=== PATIENT | female | born 1980 | race Caucasian/White ===

== ENCOUNTER 2017-03-28 22:43 | Emergency (ER) | payer OTHER ==
[~2017-03-28] VITALS: Ht 165.1 cm; Wt 90.0 kg
[~2017-03-28 22:43] MED LIST: CHOLESTEROL MED; ERYTHROMYCIN3.5 GM OD; IBUPROFEN600 MG PO; LISINOPRIL2.5 MG PO; LORTAB 5-325 M1 EACH PO; NORCO 5-325 TA1 EACH PO; VITAMIN D5000 UNIT
== END 2017-03-29 01:47 | disposition home or self-care (01) ==
LOC: ED 22:43
DX: R10.12 Left upper quadrant pain (principal); R10.13 Epigastric pain; I10 Essential (primary) hypertension; Z79.899 Other long term (current) drug therapy
CPT/HCPCS: 74177; 80053; 81001; 83690; 84703; 85025; 96374; 96375; 99284; J1885; J2270; J2405; J7030; Q9967

== ENCOUNTER 2017-06-15 19:50 | Emergency (ER) | payer OTHER ==
[~2017-06-15] VITALS: Ht 165.1 cm; Wt 90.0 kg
--- OUTSIDE RECORDS SUMMARY | ~2017-06-15 | XMS | Clinical Summary ---
Demographics + + + | Address | [address] | | | [place] [address] | + + + | Home Phone | | + + + | Preferred Language | Unknown | + + + | Marital Status | Single | + + + | Orthodoxy Affiliation | Unknown | + + + | Race | Unknown | + + + | Ethnic Group | Unknown | + + + Author + + + | Author | [facility] | + + + | Organization | [facility] | + + + | Address | Unknown | + + + | Phone | Unavailable | + + + Support + + +---------+ + | Name | Relationship | Address | Phone | + + +---------+ + | Fabian Aranda | ECON | Unknown | | + + +---------+ + Care Team Providers + +------+ + | Care Energy And Conservation Technician Name | Role | Phone | + +------+ + PP | Unavailable | + +------+ + Allergies No Known Allergies Current Medications No known medications Active Problems No known active problems Social History + +-------+ +--------+------+ | Tobacco Use | Types | Packs/Day | Years | Date | | | | | Used | | + +-------+ +--------+------+ | Never Smoker | | | | | + +-------+ +--------+------+ + + + | Sex Assigned at | Date Recorded | | | | + + + | Not on file | | + + + Last Filed Vital Signs + + + + | Vital Sign | Reading | Time Taken | + + + + | Blood Pressure | 134/92 | 01/05/2013 7:07 AM PST | + + + + | Pulse | 91 | 01/05/2013 7:07 AM PST | + + + + | Temperature | 36.9 C (98.5 F) | 01/05/2013 7:07 AM PST | + + + + | Respiratory Rate | 18 | 01/05/2013 7:07 AM PST | + + + + | Oxygen Saturation | 97% | 01/05/2013 7:07 AM PST | + + + + | Inhaled Oxygen | - | - | | Concentration | | | + + + + | Weight | 93 kg (205 lb) | 01/05/2013 1:55 AM PST | + + + + | Height | 165.1 cm (5' 5") | 01/05/2013 1:55 AM PST | + + + + | Body Mass Index | 34.11 | 01/05/2013 1:55 AM PST | + + + + Plan of Treatment Not on file Results Not on filefrom Last 3 Months
--- OUTSIDE RECORDS SUMMARY | ~2017-06-15 | XMS | Clinical Summary ---
Demographics + + + | Address | [address] | | | [place] [address] | + + + | Home Phone | | + + + | Preferred Language | Unknown | + + + | Marital Status | Single | + + + | Zoroastrianism Affiliation | Unknown | + + + | Race | Unknown | + + + | Ethnic Group | Unknown | + + + Author + + + | Author | [facility] | + + + | Organization | [facility] | + + + | Address | Unknown | + + + | Phone | Unavailable | + + + Support + + +---------+ + | Name | Relationship | Address | Phone | + + +---------+ + | Fabian Aranda | ECON | Unknown | | + + +---------+ + Care Team Providers + +------+ + | Care Outside Barrel Lathe Operator Name | Role | Phone | + [...]
[2017-06-15] MEDS ORDERED: OMEPRAZOLE20 M1 PO (20:30)
[2017-06-15] MEDS ORDERED: CARAFATE1 GM PO (22:05)
== END 2017-06-15 22:15 | disposition home or self-care (01) ==
LOC: ED 19:50
DX: K30 Functional dyspepsia (principal); I10 Essential (primary) hypertension; Z88.6 Allergy status to analgesic agent; Z79.899 Other long term (current) drug therapy
CPT/HCPCS: 76705; 80053; 81001; 83690; 85025; 96374; 96375; 99284; J2270; J2405

== ENCOUNTER 2018-12-24 11:25 | Emergency (ER) | payer SELFPAY ==
[~2018-12-24] VITALS: Ht 165.1 cm; Wt 95.5 kg
--- OUTSIDE RECORDS SUMMARY | ~2018-12-24 | XMS | Clinical Summary ---
Demographics + + + | Address | [address] | | | [place] [address] | + + + | Home Phone | | + + + | Preferred Language | Unknown | + + + | Marital Status | Single | + + + | Restorationist Affiliation | Unknown | + + + | Race | Unknown | + + + | Ethnic Group | Unknown | + + + Author + + + | Author | [facility] | | | and [place] | + + + | Organization | [facility] | | | and [place] | + + + | Address | Unknown | + + + | Phone | Unavailable | + + + Support + + +---------+ + | Name | Relationship | Address | Phone | + + +---------+ + | RADABAH,MARCIAL M | ECON | Unknown | | + + +---------+ + Care Team Providers + +------+ + | Care Organic Search Lead Name | Role | Phone | + [...] | | | Dtap/Tdap/Td (1 - | 1 | | | | Tdap) | | | | + + + + + | Cervical Cancer | | | | | Screening (Pap) | 2 | | | + + + + + | Vaccine: Influenza | | | | | (#1) | 9 | | | + + + + [...] | [employer] | [employer] | [id number] | | [phone] | | Medica | [...] | | | [address] (Home) | [place] [phone] | + +--------+ +--------+ + +"
--- OUTSIDE RECORDS SUMMARY | ~2018-12-24 | XMS | Clinical Summary ---
Demographics + + + | Address | [address] | | | [place] [address] | + + + | Home Phone | | + + + | Preferred Language | Unknown | + + + | Marital Status | Single | + + + | Episcopal Affiliation | Unknown | + + + | Race | Unknown | + + + | Ethnic Group | Unknown | + + + Author + + + | Author | [facility] (Historical as of | | | 10-05-18) | + + + | Organization | [facility] (Historical as of | | | 10-05-18) | + + + | Address | Unknown | + + + | Phone | Unavailable | + + + Support + + +---------+ + | Name | Relationship | Address | Phone | + + +---------+ + | Fabian Aranda | ECON | Unknown | | + + +---------+ + Care Team Providers + +------+ + | Care Ase Master Mechanic Name | Role | Phone | + [...]
--- OUTSIDE RECORDS SUMMARY | ~2018-12-24 | XMS | Clinical Summary ---
Demographics + + + | Address | [address] | | | [place] [address] | + + + | Home Phone | | + + + | Preferred Language | Unknown | + + + | Marital Status | Single | + + + | Tenriism Affiliation | Unknown | + + + | Race | Unknown | + + + | Ethnic Group | Unknown | + + + Author + + + | Author | [facility] | | | and [place] | + + + | Organization | [facility] | | [...] Team Providers + +------+ + | Care Radiation Control Worker Name | Role | Phone | + [...] | [employer] | [facility] | [id number] | | [phone] | | Medica | [...] | | | [address] (Home) | [place] [id number] | + +--------+ +--------+ + +"
--- OUTSIDE RECORDS SUMMARY | ~2018-12-24 | XMS | Clinical Summary ---
Demographics + + + | Address | [address] | | | [place] [address] | + + + | Home Phone | | + + + | Preferred Language | Unknown | + + + | Marital Status | Single | + + + | Zoroastrian Affiliation | Unknown | + + + | Race | Unknown | + + + | Ethnic Group | Unknown | + + + Author + + + | Author | [facility] [employer] (Historical as of | | | 10-05-18) | + + + | Organization | [facility] [employer] (Historical as of | | | 10-05-18) [...] Team Providers + +------+ + | Care Enrollment Nurse Name | Role | Phone | + [...]
[~2018-12-24 11:25] MED LIST changes: +ATORVASTATIN CA20 MG PO; +CARAFATE1 GM PO; +HYDROCHLOROTHIA25 MG PO; +LISINOPRIL40 MG PO; +MINOCYCLINE HCL50 M1 PO; +OMEPRAZOLE20 M1 PO; +VITAMIN D5000 UNIT PO
[2018-12-24] MEDS ORDERED: ZITHROMAX250 MG PO (14:32)
--- NOTE | 2018-12-24 20:24 | EKG ---
[facility] [address] [place], [place] [address] Signed Sinus tachycardia Possible Anterior infarct , age undetermined Abnormal ECG No previous ECGs available Confirmed by JOHAN SARKAR DO ([id number]) on 12/24/2018 8:24:02 PM Electronically Signed By: JOHAN SARKAR DO 12/24/182023 PATIENT NAME: JUAN MARTINEZ Electrocardiogram DATE OF : 82 PHYSICIAN: JOHAN SARKAR DO REPORT #: [id number] REPORT IS CONFIDENTIAL AND NOT TO BE RELEASED WITHOUT AUTHORIZATION
== END 2018-12-24 14:57 | disposition home or self-care (01) ==
LOC: ED 11:25
DX: J40 Bronchitis, not specified as acute or chronic (principal); R10.13 Epigastric pain; I10 Essential (primary) hypertension; Z88.8 Allergy status to other drugs, medicaments and biological substances; Z79.899 Other long term (current) drug therapy
CPT/HCPCS: 71045; 71260; 80053; 84484; 85025; 86850; 86900; 86901; 93005; 93010; 96360; 96361; 99285-25; J7030; Q9967

== ENCOUNTER 2019-06-04 22:19 | Emergency (ER) | payer OTHER ==
[~2019-06-04] VITALS: Ht 165.1 cm; Wt 95.5 kg
[~2019-06-04 22:19] MED LIST changes: +ZITHROMAX250 MG PO
--- NOTE | 2019-06-05 16:15 | EKG ---
[facility] [address] [place], [place] [address] Signed Normal sinus rhythm Possible Anterior infarct (cited on or before 24-DEC-2018) Abnormal ECG When compared with ECG of 24-DEC-2018 12:14, No significant change was found Confirmed by JOHAN SARKAR DO ([id number]) on 06/05/2019 4:15:33 PM Electronically Signed By: JOHAN SARKAR DO 06/05/19 1615 PATIENT NAME: JUANJUAN JIANG Electrocardiogram DATE OF : 82 PHYSICIAN: JOHAN SARKAR DO REPORT #: [id number] REPORT IS CONFIDENTIAL AND NOT TO BE RELEASED WITHOUT AUTHORIZATION
== END 2019-06-05 00:05 | disposition home or self-care (01) ==
LOC: ED 22:19
PROC: 0T9B70Z Drainage of Bladder with Drainage Device, Via Natural or Artificial Opening (ICD-10-PCS; principal; 2019-06-04)
DX: F15.10 Other stimulant abuse, uncomplicated (principal); I10 Essential (primary) hypertension; Z88.6 Allergy status to analgesic agent; Z79.899 Other long term (current) drug therapy
CPT/HCPCS: 51701; 70450; 80053; 81001; 83735; 84703; 85025; 93005; 93010; 99284-25; G0480

== ENCOUNTER 2019-07-29 17:54 | Emergency (ER) | payer OTHER ==
[~2019-07-29] VITALS: Ht 165.1 cm; Wt 95.5 kg
--- OUTSIDE RECORDS SUMMARY | ~2019-07-29 | XMS | Encounter Summary ---
Demographics + + + | Address | [address] | | | [place] [address] | + + + | Home Phone | | + + + | Preferred Language | Unknown | + + + | Marital Status | Single | + + + | Christianity Affiliation | Unknown | + + + | Race | Unknown | + + + | Ethnic Group | Unknown | + + + Author + + + | Author | [facility] | | | and [place] | + + + | Organization | [facility] | | | and [place] | + + + | Address | Unknown | + + + | Phone | Unavailable | + + + Support + + +---------+ + | Name | Relationship | Address | Phone | + + +---------+ + | Gabriela Jimenez | ECON | Unknown | | + + +---------+ + Care Team Providers + +------+ + | Care Wet End Helper Name | Role | Phone | + +------+ + PCP | Unavailable | + +------+ + Encounter Details +--------+ + + + + | Date | Type | Department | Care Team | Description | +--------+ + + + + | 08/24/ | Hospital | [facility] | | | | 1999 | Encounter | MED CTR XRAY [address] | | | | | [address] | | | | | | [place] [address] | | | | | | [phone] | | | +--------+ + + + + Social History + +-------+ +--------+------+ | Tobacco Use | Types | Packs/Day | Years | Date | | | | | Used | | + +-------+ +--------+------+ | Never Assessed | | | | | + +-------+ +--------+------+ + + + | Sex Assigned at | Date Recorded | | | | + + + | Not on file | | + + + + + + + | Job Start Date | Occupation | Industry | + + + + | Not on file | Not on file | Not on file | + + + + + + + + | Travel History | Travel Start | Travel End | + + + + + + | No recent travel history available. | + + documented as of this encounter Plan of Treatment Not on filedocumented as of this encounter Visit Diagnoses Not on filedocumented in this encounter"
--- OUTSIDE RECORDS SUMMARY | ~2019-07-29 | XMS | Clinical Summary ---
Demographics + + + | Address | [address] | | | [place] [address] | + + + | Home Phone | | + + + | Preferred Language | Unknown | + + + | Marital Status | Single | + + + | Adventist Affiliation | Unknown | + + + | Race | Unknown | + + + | Ethnic Group | Unknown | + + + Author + + + | Author | [facility] | | | and [place] | + + + | Organization | [facility] | | | and [...] Team Providers + +------+ + | Care Quality Compliance Consultant Name | Role | Phone | + +------+ + | Calista Naqvi PA-C | PCP | | + +------+ + Allergies Not on File Medications Not on file Active Problems Not on file Social History + +-------+ +--------+------+ | Tobacco [...] recent travel history available. | + + Last Filed Vital Signs Not on file Plan of Treatment + + + + + | Health Maintenance | Due Date | Last Done | Comments | + + + + + | Vaccine: | | | | | Dtap/Tdap/Td (1 - | 3 | | | | Tdap) | | | | + + + + + | Cervical Cancer | | | | | Screening (Pap) | 2 | | | + + + + + | Vaccine: Influenza | | | | | (Season Ended) | 0 | | | + + + + + Results Not on filefrom Last 3 Months Insurance + +--------+ +--------+ +---------+--------+ | Payer | Benefi | Subscriber | Effect | Phone | Address | Type | | | t Plan | ID | trever | | | | | | / | | Dates | | | | | | Group | | | | | | + +--------+ +--------+ +---------+--------+ | [employer] | [employer] | [id number] | | [phone] | | Medica | | MEDICAID HMO | HEALTH | | [phone] | 1 | | id | | | MDCD | | esent | | | | | [place] | | | | | | + +--------+ +--------+ +---------+--------+ + +--------+ +--------+ + + | Guarantor Name | Accoun | Relation to | Date | Phone | Billing Address | | | t Type | Patient | of | | | | | | | | | | + +--------+ +--------+ + + | Raheem Mederos | Person | Self [birth year] | [address] | | | al/Fam | | 1981 | [phone] | [address], | | | [place] | | | [address] (Home) | [place] [phone] | + +--------+ +--------+ + +"
--- OUTSIDE RECORDS SUMMARY | ~2019-07-29 | XMS | Clinical Summary ---
Demographics + + + | Address | [address] | | | [place] [address] | + + + | Home Phone | | + + + | Preferred Language | Unknown | + + + | Marital Status | Single | + + + | Samaritan Affiliation | Unknown | + + + | Race | Unknown | + + + | Ethnic Group | Unknown | + + + Author + + + | Author | [facility] | | | and [place] | + + + | Organization | [facility] | | | [...] Team Providers + +------+ + | Care Leather Finisher Name | Role | Phone | + [...] | [employer] | [employer] | [id number] | | [phone] | | Medica | [...] | | | [address] (Home) | [place] [address] | + +--------+ +--------+ + +"
--- OUTSIDE RECORDS SUMMARY | ~2019-07-29 | XMS | Encounter Summary ---
Demographics + + + | Address | [address] | | | [place] [address] | + + + | Home Phone | | + + + | Preferred Language | Unknown | + + + | Marital Status | Single | + + + | Christian Affiliation | Unknown | + + + | Race | Unknown | + + + | Ethnic Group | Unknown | + + + Author + + + | Author | [facility] | | | and [place] | + + + | Organization | [facility] | | | and [...] Team Providers + +------+ + | Care Collar Starcher Name | Role | Phone | + +------+ + PCP | Unavailable | + +------+ + Encounter Details +--------+ + + + + | Date | Type | Department | Care Team | Description | +--------+ + + + + | 01/05/ | Emergency | [facility] | Felipe Barnard DO | Abdominal pain; | | 2012 | | MEDICAL CENTER | [address] | Renal stone | | | | EMERGENCY CENTER | [place], [place] | | | | | [address] | [address] | | | | | [place], [place] | [phone] | | | | | [address] | | | | | | [phone] | | | +--------+ + + + [...] Not on filedocumented as of this encounter Procedures + +--------+ + + + | Procedure Name | Priori | Date/Time | Associated Diagnosis | Comments | | | ty | | | | + +--------+ + + + | CT PELVIS WO | Routin | 01/05/2013 | | Results for this | | CONTRAST | e | 6:13 AM | | procedure are in the | | | | PST | | results section. | + +--------+ + + + documented in this encounter Results CT Pelvis wo Contrast (01/05/2013 6:13 AM PST) + + | Specimen | + + | | + + + + + | Impressions | Performed At | + + + | Small nonobstructing left renal stone. Otherwise negative non-IV | | | contrast CT of the pelvis. [facility] Electronically signed by | | | Prosper Brooks MD on Jan 05 2013 6:27AM SITE ID: [id number] | | + + + + + + | Narrative | Performed At | + + + | EXAM: CT PELVIS EXAM DATE: 01/05/2013 06:17 AM. CLINICAL | | | HISTORY: Abdominal pain. COMPARISONS: None. TECHNIQUE: Routine | | | helical CT imaging was performed through the pelvis. IV contrast: | | | None. Enteric contrast: Rectal and oral. Reconstructions: Coronal and | | | sagittal. FINDINGS: Visualized Abdominal Organs: 3 mm | | | nonobstructing left renal stone. Otherwise grossly unremarkable. | | | Peritoneal Cavity/Bowel: Normal. No free fluid, free air or | | | adenopathy. No masses or acute inflammatory process. Small caliber | | | appendix is probably seen. No evidence of inflammation. Pelvic | | | Organs: Normal. The bladder, rectum, and visualized pelvic organs are | | | within normal limits. Vasculature: No aneurysms or other | | | significant abnormality. Bones: No significant abnormality. | | | Other: None. | | + + + + + | Procedure Note | + + | Joaquim, Rad Conversion - 10/11/2018 8:06 PM PDT EXAM:CT PELVIS EXAM DATE: 01/05/2013 | | 06:17 AM. CLINICAL HISTORY: Abdominal pain. COMPARISONS: None. TECHNIQUE: Routine | | helical CT imaging was performed through the pelvis. IV contrast: None. Enteric | | contrast: Rectal and oral. Reconstructions: Coronal and sagittal. FINDINGS:Visualized | | Abdominal Organs: 3 mm nonobstructing left renal stone. Otherwise grossly unremarkable. | | Peritoneal Cavity/Bowel: Normal. No free fluid, free air or adenopathy. No masses or | | acute inflammatory process. Small caliber appendix is probably seen. No evidence of | | inflammation. Pelvic Organs: Normal. The bladder, rectum, and visualized pelvic organs | | are within normal limits. Vasculature: No aneurysms or other significant abnormality. | | Bones: No significant abnormality. Other: None. IMPRESSION: Small nonobstructing left | | renal stone. Otherwise negative non-IV contrast CT of the pelvis. [facility] Electronically | | signed by Prosper Brooks MD on Jan 05 2013 6:27AM SITE ID: [id number] | |Visualized Abdominal Organs: 3 mm nonobstructing left renal stone. Otherwise grossly unrema rkable. | | | |Peritoneal Cavity/Bowel: Normal. No free fluid, free air or adenopathy. No masses or acute inflammatory process. Small caliber appendix is probably seen. No evidence of inflammation. | | | |Pelvic Organs: Normal. The bladder, rectum, and visualized pelvic organs are within normal limits. | | | |Vasculature: No aneurysms or other significant abnormality. | | | |Bones: No significant abnormality. | | | |Other: None. | | | |IMPRESSION: | | | |Small nonobstructing left renal stone. Otherwise negative non-IV contrast CT of the pelvis. | | | |[facility] | | | | Electronically signed by Prosper Brooks MD on Jan 05 2013 6:27AM SITE ID: [id number] | + + documented in this encounter Visit Diagnoses + + | Diagnosis | + + | Abdominal pain Abdominal pain, unspecified site | + + | Renal stone Calculus of kidney | + + documented in this encounter"
--- OUTSIDE RECORDS SUMMARY | ~2019-07-29 | XMS | Encounter Summary ---
Demographics + + + | Address | [address] | | | [place] [address] | + + + | Home Phone | | + + + | Preferred Language | Unknown | + + + | Marital Status | Single | + + + | Buddhist Affiliation | Unknown | + + + | Race | Unknown | + + + | Ethnic Group | Unknown | + + + Author + + + | Author | [facility] | | | and [place] | + + + | Organization | [facility] | | | [...] Team Providers + +------+ + | Care Recreation Coordinator Name | Role | Phone | + +------+ + PCP | Unavailable | + +------+ + Encounter Details +--------+ + + + + | Date | Type | Department | Care Team | Description | +--------+ + + + + | 08/24/ | Hospital | [facility] | | | | 1999 | Encounter | MED CTR XRAY [address] | | | | | | [address] | | | | | | [place] [address] | | | | | | [phone] | | | +--------+ + + + [...]
--- OUTSIDE RECORDS SUMMARY | ~2019-07-29 | XMS | Encounter Summary ---
Demographics + + + | Address | [address] | | | [place] [address] | + + + | Home Phone [...] Author | [facility] [...] Team Providers + +------+ + | Care Probate Judge Name | Role | Phone | + +------+ + PCP | Unavailable | + +------+ + Encounter Details +--------+ + + + + | Date | Type | Department | Care Team | Description | +--------+ + + + + | 01/05/ | Emergency | [facility] | Felipe Barnard DO | Abdominal pain; | | 2012 | | MEDICAL CENTER | [address] | Renal stone | | | | EMERGENCY CENTER | [place], [place] | | | | | [address] | [address] | | | | | [place], [place] | [phone] | | | | | [address] | | | | | | [phone] | | | +--------+ + + + [...]
[2019-07-29] MEDS ORDERED: DICLOFENAC SODI75 MG PO (19:20)
[2019-07-29] MEDS ORDERED: TRAMADOL HCL50 MG PO (19:20)
== END 2019-07-29 19:41 | disposition home or self-care (01) ==
LOC: ED 17:54
DX: S20.211A Contusion of right front wall of thorax, initial encounter (principal); M94.0 Chondrocostal junction syndrome [Tietze]; I10 Essential (primary) hypertension; Z88.6 Allergy status to analgesic agent; Z79.899 Other long term (current) drug therapy; V00.121A Fall from non-in-line roller-skates, initial encounter
CPT/HCPCS: 71046; 99283-25